=== PATIENT | female | born 1995 | race Caucasian/White ===

== ENCOUNTER 2017-07-17 06:27 | Emergency (ER) | payer OTHER ==
[~2017-07-17] VITALS: Ht 154.9 cm; Wt 92.1 kg
[2017-07-17 06:37] VITALS: Ht 154.9 cm; Wt 92.1 kg
[2017-07-17 07:00] VITALS: BP 115/59
== END 2017-07-17 07:06 | disposition home or self-care (01) ==
LOC: ED 06:27
DX: J02.9 Acute pharyngitis, unspecified (principal); Z88.1 Allergy status to other antibiotic agents